=== PATIENT | female | born 1990 | race American Indian/Alaskan Native ===

== ENCOUNTER 2020-07-04 17:32 | Emergency (ER) | payer OTHER, SELFPAY ==
[2020-07-04 17:44] VITALS: BP 124/58; PULSE 76; RESP 15; TEMP 36.9; O2SAT 97; BMI 34.7
--- NOTE | 2020-07-04 18:39 | ED.EAR ---
HPI - Ear Problem <CARLEE Decker - Last Filed: 07/04/20 18:46> General Chief complaint: Ear Stated complaint: BILATERAL EAR PAIN Time Seen by Provider: 07/04/20 17:56 Source: patient Mode of arrival: Ambulatory Limitations: no limitations History of Present Illness HPI Narrative: The patient is a very pleasant 29-year-old female nonsmoker with history of otitis media, bilateral who presents with a chief complaint of continued ear pain and pressure sensation. She was treated last month for a bilateral ear infection with Augmentin. She took the whole course. A few days ago she noticed some drainage those described as brown from her left ear. She complains of bilateral ear pressure, no fevers nausea vomiting or diarrhea. She states that she has pressure in her sinuses. It radiates to her teeth. She has not taken anything recently to feel better. Related Data Allergies Allergy/AdvReac Type Severity Reaction Status Date / Time latex [LATEX] Allergy Mild IRRITATION Verified 07/04/20 17:44 Review of Systems <CARLEE Decker - Last Filed: 07/04/20 18:46> Review of Systems Narrative: GENERAL: Denies chills, fatigue, malaise, fever, sweats. HEENT: See HPI RESPIRATORY: Denies dyspnea, cough, wheezing, hemoptysis, sputum. CARDIOVASCULAR: Denies chest pain, palpitations, orthopnea, edema, GASTROINTESTINAL: Denies nausea, vomiting, abdominal pain, diarrhea, constipation, melena. : Denies dysuria, frequency, incontinence, hematuria, urinary retention. MUSCULOSKELETAL: denies weakness, joint pain, or bony pain SKIN: Denies rash, skin lesions, or other NEUROLOGIC: Denies weakness, headache, numbness, change in speech, confusion, seizures, incoordination. PSYCHIATRIC: No concerning psychosocial issues. 12 point review of systems is negative except for those stated above Patient History <CARLEE Decker - Last Filed: 07/04/20 18:46> Medical History Anxiety (Chronic) IUD (intrauterine device) in place (Chronic 06/2014) Family History Father Kidney disease Heart disease Diabetes mellitus High cholesterol History of alcohol abuse Congestive heart failure Cardiac arrhythmia Mother Age: 68 Diabetes mellitus High cholesterol Heart disease History of alcohol abuse Sister Acute asthma Grandmother Cancer Diabetes mellitus Family/Other Cancer Family/Other Cancer Grandmother Diabetes mellitus Exam <CARLEE Decker - Last Filed: 07/04/20 18:46> Narrative Exam Narrative: GENERAL: This is a well-nourished, well-developed patient, in no acute distress HEAD: Atraumatic. Normocephalic. No temporal or scalp tenderness. EYES: Pupils equal round and reactive. Extraocular motions intact. No scleral icterus. No injection or drainage. ENT: Nose without bleeding, purulent drainage or septal hematoma. Throat without erythema, tonsillar hypertrophy or exudate. Uvula midline. Airway patent. Bilateral TMs pearly cook. Pressure noted as TMs slightly bulging. Bilateral ear canals within normal limits. No pain to palpation bilateral mastoid or pinna. NECK: Trachea midline. No JVD or lymphadenopathy. Supple, nontender, no meningeal signs. CARDIOVASCULAR: Regular rate and rhythm RESPIRATORY: Clear to auscultation. Breath sounds equal bilaterally. No wheezes, rales, or rhonchi. No cough. No increased respiratory effort no accessory muscle use. EXTREMITIES: No clubbing, cyanosis, or edema. No joint tenderness, effusion, or edema noted. BACK: Nontender without deformity or crepitance. No flank tenderness. NEURO: AOx3. SKIN: No rash or erythema on visible skin Initial Vital Signs Initial Vital Signs: Vital Signs Temperature 98.4 F 07/04/20 17:44 Pulse Rate 76 07/04/20 17:44 Respiratory Rate 15 07/04/20 17:44 Blood Pressure 124/58 L 07/04/20 17:44 Pulse Oximetry 97 07/04/20 17:44 <Kevin Pereira DO - Last Filed: 07/04/20 19:11> Initial Vital Signs Initial Vital Signs: Vital Signs Temperature 98.4 F 07/04/20 17:44 Pulse Rate 76 07/04/20 17:44 Respiratory Rate 15 07/04/20 17:44 Blood Pressure 124/58 L 07/04/20 17:44 Pulse Oximetry 97 07/04/20 17:44 Scores <CARLEE Decker - Last Filed: 07/04/20 18:46> GCS Dewy Rose coma scale eye opening: Spontaneous Heidi coma scale verbal response: Orientated Heidi coma scale motor response: Obey commands Heidi coma scale total score: 15 Course <Tonya AmbrizCATA-BC - Last Filed: 07/04/20 18:46> Vital Signs Vital signs: Vital Signs - 8 hr 07/04/20 17:44 07/04/20 18:52 Temperature 98.4 F Pulse Rate 76 70 Respiratory Rate 15 Blood Pressure 124/58 L 124/86 Pulse Oximetry 97 97 <Kevin DO Randall - Last Filed: 07/04/20 19:11> Vital Signs Vital signs: Vital Signs - 8 hr 07/04/20 17:44 07/04/20 18:52 Temperature 98.4 F Pulse Rate 76 70 Respiratory Rate 15 Blood Pressure 124/58 L 124/86 Pulse Oximetry 97 97 Medical Decision Making <Tonya GoyalCARLEE terry - Last Filed: 07/04/20 18:46> MDM Narrative Medical decision making narrative: The patient is a 29-year-old female who presents with a chief complaint of bilateral ear pain and pressure. She has no indications of infection on exam, is overall benign. I did discuss at length the use of NeilMed sinus rinse or Neti pot, Flonase, Sudafed to help decrease the pressure and alleviate eustachian tube dysfunction. I did discuss with the patient the possibility of a bacterial sinus infection, though we agreed to hold off on antibiotics at this point time she does not have any fevers or signs of systemic illness. Additionally she was recently treated with antibiotics would like to avoid antibiotic associated diarrhea, candidiasis etcetera. Encourage patient to follow up with primary care provider in the next few days or come back to the emergency department for any acute concerns. Patient has no questions or concerns upon discharge and states understanding of return precautions as well as follow-up care. Discharge Plan Departure Patient Disposition: Home Clinical Impression: Acute dysfunction of both eustachian tubes Discharge Date/Time: 07/04/20 18:56 Instructions: DI for Eustachian Tube Dysfunction-Adult Activity Restrictions/Additional Instructions: Thank you for trusting us with your care today. As discussed, there is no signs of infection in either ear. I suggest the following remedies: NeilMed sinus rinse or Neti pot, Flonase once a day, Sudafed Please follow-up with primary care provider in the next few days. Please come back to the emergency department for any acute concerns. Please monitor for signs of worsening such as fever etcetera. Referrals: Maryann Brunson DO [Primary Care Provider] - <Kevin Pereira DO - Last Filed: 07/04/20 19:11> Cosign ED Attending Mariselaature Attestation: Dr Pereira Co-Sign Statement: I was available for consultation during this patient's emergency department visit. This chart is signed by myself for administrative purposes only. I did not have direct contact with this patient during this visit. They were seen independently by the APC.
[2020-07-04 18:52] VITALS: BP 124/86; PULSE 70; O2SAT 97
== END 2020-07-04 18:56 | disposition home or self-care (01) ==
PROVIDERS: Emergency Provider Nurse Practitioner Family; PCP Family Medicine
DX: H69.83 Other specified disorders of Eustachian tube, bilateral (principal); H92.03 Otalgia, bilateral
CPT/HCPCS: 99281

== ENCOUNTER 2021-01-10 14:58 | Emergency (ER) | payer OTHER, SELFPAY ==
[2021-01-10] VITALS (9 sets, daily range): BP systolic 112–154; BP diastolic 63–94; PULSE 58–91; RESP 14–23; TEMP 36.7; O2SAT 99–100
--- NOTE | 2021-01-10 15:08 | DI.CT.S_ITS ---
PROCEDURE: CT STROKE INDICATIONS: Right-sided lower facial drooping, code stroke TECHNIQUE: Noncontrast 4.5 mm thick angled axial sections acquired from the foramen magnum to the vertex, with coronal reformats. For radiation dose reduction, the following was used: automated exposure control, adjustment of mA and/or kV according to patient size. COMPARISON: None. FINDINGS: Image quality: Excellent. CSF spaces: Basal cisterns are patent. No extra-axial fluid collections. Ventricles are normal in size and shape. Brain: No midline shift. No intracranial masses or hemorrhage. Trotter-white matter interface is normal. Skull and face: Calvarium and visualized facial bones are intact, without suspicious lesions. Sinuses: Visualized sinuses and mastoids are clear. IMPRESSION: No CT evidence of acute cerebral infarct, acute intracranial hemorrhage hemorrhage, or other acute intracranial finding. Findings were discussed with at 1520 hours on 01/10/2021. This study fulfills neurological imaging criteria for inclusion or exclusion of acute stroke therapies based on available published neurological imaging guidelines. Dictated by: Louie Hathaway M.D. on 01/10/2021 at 15:28 Approved by: Louie Hathaway M.D. on 01/10/2021 at 15:29
--- NOTE | 2021-01-10 15:37 | ED_ITS ---
HPI - Neuro Symptoms/Deficit General Chief Complaint: Neuro Symptoms/Deficit Stated Complaint: right side facial numbness and dropping Time Seen by Provider: 01/10/21 15:08 Source: patient Mode of arrival: Ambulatory Limitations: no limitations History of Present Illness HPI Narrative: Patient is a 30-year-old otherwise healthy female who is here for evaluation of right-sided facial numbness and drooping and right arm tingling. A code stroke was called upon arrival. She was immediately taken to the CT scanner. Symptoms started approximately 50 minutes prior to arrival here in the ER. She states she was driving to the walk-in clinic for ?another reason ?she stated that while she was driving she got a metallic taste in her mouth and then started feeling like the right side of her face was tingling and drooping and then had some tingling in her right hand and right foot. Upon my evaluation which was shortly after her CT scan she reported that her symptoms of were improving. She denies any headache. No vision changes. She has never had a migraine before. Never had a seizure before. On Anticoagulants: No Related Data Allergies Allergy/AdvReac Type Severity Reaction Status Date / Time latex [LATEX] Allergy Mild IRRITATION Verified 01/10/21 17:51 Review of Systems Constitutional Constitutional: Denies body ache(s), Denies chills, Denies fever(s), Denies headache(s), Denies malaise and Denies weakness Eyes Eyes: Denies blurry vision, Denies exophthalmos and Denies change in vision ENT Ears, Nose, Mouth, and Throat: Denies vertigo, Denies dizziness, Denies headache(s), Denies disequilibrium, Denies sinus pain and Denies sore throat Cardiovascular Cardiovascular: Denies chest pain, Denies rapid heart rate and Denies dyspnea Respiratory Respiratory: Denies cough and Denies dyspnea Gastrointestinal Gastrointestinal: Denies abdominal pain, Denies nausea and Denies vomiting Genitourinary Genitourinary: Denies dysuria Genitourinary: Denies dysuria Musculoskeletal Musculoskeletal: Denies arthralgias, Denies myalgias and Reports tingling Integumentary/Breasts Skin/Breast: Denies rash Neurologic Neurologic: Denies confusion, Denies vertigo, Denies dizziness, Denies headache(s), Reports tingling, Denies disequilibrium and Denies weakness Psychiatric Psychiatric: Denies anxiety and Denies confusion Hematologic/Lymphatic Hematologic/Lymphatic: Denies easy bleeding and Denies easy bruising On Anticoagulants: No Allergic/Immunologic Allergic/Immunologic: Denies urticaria Patient History Medical History Anxiety IUD (intrauterine device) in place (06/2014) Family History Father Kidney disease Heart disease Diabetes mellitus High cholesterol History of alcohol abuse Congestive heart failure Cardiac arrhythmia Mother Age: 68 Diabetes mellitus High cholesterol Heart disease History of alcohol abuse Sister Acute asthma Grandmother Cancer Diabetes mellitus Family/Other Cancer Family/Other Cancer Grandmother Diabetes mellitus Exam Initial Vital Signs Initial Vital Signs: Vital Signs Temperature 98.0 F 01/10/21 15:02 Pulse Rate 91 H 01/10/21 15:02 Respiratory Rate 22 01/10/21 15:02 Blood Pressure 148/65 H 01/10/21 15:02 Pulse Oximetry 99 01/10/21 15:02 Const General: cooperative, comfortable and well developed Limitations: mental status not altered HENMT Head: normal to inspection and normocephalic Nose: external nose normal Mouth: oral mucosae normal Eyes General: appearance normal, both eyes and all related structures Eyelids: eyelids normal Pupils: PERRL Resp Effort & Inspection: normal respiratory effort Auscultation: clear to auscultation bilaterally Cardio Rate: regular rate Rhythm: regular rhythm GI Inspection: non-distended Palpation: soft and No firm Skin Lesions: no lesions Rashes: no rashes Neuro General: patient alert, patient awake and patient oriented x3 Cognition: normal cognition Speech: speech normal Gait: normal gait Motor: muscle tone normal throughout Sensory Exam: no sensory deficits noted (Decreased sensation to light touch right-sided face compared to left) Other: She reports no tingling to her hands and feet to light touch or sensation differences bilateral Extrem General: normal to inspection, capillary refill normal and No edema Psych Appearance: grossly normal and well kempt Scores GCS Heidi coma scale eye opening: Spontaneous Success coma scale verbal response: Orientated Heidi coma scale motor response: Obey commands Heidi coma scale total score: 15 NIH Stroke Scale Level of Conciousness: Alert, keenly responsive Ask month/age: Answers both questions correctly. Open/close eyes, close hand: Performs both tasks correctly Best gaze horizontal: Normal Visual karimi: No visual loss Facial palsy: Minor paralysis, flattened nasolabial fold, asymmetry on smiling Left arm drift: No drift for full 10 sec Right arm drift: No drift for full 10 sec Left leg drift: No drift for full 5 sec Right leg drift: No drift for full 5 sec Limb ataxia: Absent Sensory on face/arms/legs: Mild to moderate sensory loss, can tell touch Best language: No aphasia, normal Dysarthria: Normal Extinction or inattention: No abnormality Total NIH Stroke scale score: 2 Course Orders Ordered: ED Orders 01/10/21 15:08 CT Stroke Stat 01/10/21 15:09 EKG-12 Lead Stat 01/10/21 15:33 Complete Blood Count AUTO DIFF Stat Comprehensive Metabolic Panel Stat Ethanol (ETOH) Stat Lipase Stat Test Serum,Qual Stat Thyroid Stimulating Hormone Stat Troponin & CK Cardiac Panel Stat 01/10/21 16:17 Chlamydia Gonorrhea PCR -URINE Stat Urinalysis and Microscopic Stat Discontinued Medications Azithromycin (Azithromycin 250 Mg Tablet) 1,000 mg PO NOW ONE Stop: 01/10/21 18:27 Last Admin: 01/10/21 18:33 Dose: 1,000 mg Documented by: MINEOTEM Vital Signs Vital signs: Vital Signs - 8 hr 01/10/21 15:02 01/10/21 15:11 01/10/21 15:12 Temperature 98.0 F Pulse Rate 91 H 81 72 Respiratory Rate 22 Blood Pressure 148/65 H 129/79 Pulse Oximetry 99 99 100 01/10/21 15:30 01/10/21 16:00 01/10/21 16:15 Temperature Pulse Rate 67 60 68 Respiratory Rate 23 21 23 Blood Pressure 120/82 112/63 115/68 Pulse Oximetry 100 100 100 01/10/21 16:30 01/10/21 17:00 01/10/21 18:49 Temperature Pulse Rate 59 L 58 L 81 Respiratory Rate 18 18 14 Blood Pressure 119/73 114/78 154/94 H Pulse Oximetry 100 100 100 MDM - Neuro Symptoms/Deficit Lab Data Attestation: I reviewed the patient's lab results. Result diagrams: 01/10/21 15:33 01/10/21 15:33 Labs: Lab Results 01/10/21 01/10/21 01/10/21 Range/Units 15:33 15:33 15:33 WBC 7.2 (4.5-11.0) X10^3/uL RBC 4.26 (4.0-5.2) X10^6/uL Hgb 12.1 (12.0-16.0) g/dL Hct 37.4 (36-46) % MCV 87.9 (80-100) fL MCH 28.5 (26-34) PG MCHC 32.4 (30-36) % RDW 14.6 (11.6-14.8) % Plt Count 260 (150-400) X10^3/uL Neut % (Auto) 56.0 (50-75) % Lymph % (Auto) 36.1 (25-40) % Davidson % (Auto) 4.9 (3-14) % Eos % (Auto) 2.7 (2-4) % Baso % (Auto) 0.3 (0-2) % Neut # (Auto) 4000 (1931-0649) /uL Lymph # (Auto) 2600 (2307-5506) /uL Davidson # (Auto) 400 (0-900) /uL Eos # (Auto) 200 (0-450) /uL Baso # (Auto) 0 (0-100) /uL Sodium 137 (137-145) mmol/L Potassium 3.8 (3.4-5.1) mmol/L Chloride 103 (98-107) mmol/L Carbon Dioxide 26 (22-32) mmol/L BUN 16 (7-17) mg/dL Creatinine 0.73 (0.52-1.04) mg/dL Estimated GFR > 60.0 (>60) mL/min BUN/Creatinine Ratio 21.9 (6-22) Glucose 103 H (70-100) mg/dL Calcium 9.0 (8.4-10.2) mg/dL Total Bilirubin 0.2 (0.2-1.3) mg/dL AST 19 (14-36) IU/L ALT 15 (<35) IU/L Alkaline Phosphatase 46 (38-126) U/L Total Creatine Kinase 56 (30-135) U/L CK-MB (CK-2) TNP CK-MB (CK-2) Rel Index TNP Troponin I < 0.012 (0.01-0.034) ng/mL Total Protein 7.8 (6.3-8.2) g/dL Albumin 4.5 (3.5-5.0) g/dL Globulin 3.3 (1.7-4.1) g/dL Albumin/Globulin Ratio 1.4 (1.0-2.8) Lipase 78 (23-300) U/L TSH 1.46 (0.47-4.68) uIU/mL Serum , Qual (Negative) Urine Color Urine Appearance Urine pH (4.5-8.0) Ur Specific [place] (1.000-1.035) Urine Protein (Negative) Urine Glucose (UA) (Negative) g/dL Urine Ketones (NEGATIVE) Urine Occult Blood (Negative) Urine Nitrate (Negative) Urine Bilirubin (NEGATIVE) Urine Urobilinogen (0.2) E.U./dL Ur Leukocyte Esterase (NEGATIVE) Urine RBC (0-5/HPF) Urine WBC (0-5/HPF) Urine Bacteria (None) Ur Culture Indicated? Ethyl Alcohol < 10 ( - 10) mg/dL Ur Chlamydia DNA (PCR) N gonorrhoeae DNA (PCR) 01/10/21 01/10/21 01/10/21 Range/Units 15:33 16:17 16:17 WBC (4.5-11.0) X10^3/uL RBC (4.0-5.2) X10^6/uL Hgb (12.0-16.0) g/dL Hct (36-46) % MCV (80-100) fL MCH (26-34) PG MCHC (30-36) % RDW (11.6-14.8) % Plt Count (150-400) X10^3/uL Neut % (Auto) (50-75) % Lymph % (Auto) (25-40) % Davidson % (Auto) (3-14) % Eos % (Auto) (2-4) % Baso % (Auto) (0-2) % Neut # (Auto) (2278-1836) /uL Lymph # (Auto) (6648-6873) /uL Davidson # (Auto) (0-900) /uL Eos # (Auto) (0-450) /uL Baso # (Auto) (0-100) /uL Sodium (137-145) mmol/L Potassium (3.4-5.1) mmol/L Chloride (98-107) mmol/L Carbon Dioxide (22-32) mmol/L BUN (7-17) mg/dL Creatinine (0.52-1.04) mg/dL Estimated GFR (>60) mL/min BUN/Creatinine Ratio (6-22) Glucose (70-100) mg/dL Calcium (8.4-10.2) mg/dL Total Bilirubin (0.2-1.3) mg/dL AST (14-36) IU/L ALT (<35) IU/L Alkaline Phosphatase (38-126) U/L Total Creatine Kinase (30-135) U/L CK-MB (CK-2) CK-MB (CK-2) Rel Index Troponin I (0.01-0.034) ng/mL Total Protein (6.3-8.2) g/dL Albumin (3.5-5.0) g/dL Globulin (1.7-4.1) g/dL Albumin/Globulin Ratio (1.0-2.8) Lipase (23-300) U/L TSH (0.47-4.68) uIU/mL Serum , Qual Negative (Negative) Urine Color Yellow Urine Appearance Clear Urine pH 6.0 (4.5-8.0) Ur Specific [place] 1.020 (1.000-1.035) Urine Protein Negative (Negative) Urine Glucose (UA) Negative (Negative) g/dL Urine Ketones Negative (NEGATIVE) Urine Occult Blood Negative (Negative) Urine Nitrate Negative (Negative) Urine Bilirubin Negative (NEGATIVE) Urine Urobilinogen 0.2 (0.2) E.U./dL Ur Leukocyte Esterase Negative (NEGATIVE) Urine RBC 0-1/hpf (0-5/HPF) Urine WBC 0-1/hpf (0-5/HPF) Urine Bacteria None seen (None) Ur Culture Indicated? Cult not indicated Ethyl Alcohol ( - 10) mg/dL Ur Chlamydia DNA (PCR) Detected H N gonorrhoeae DNA (PCR) Not detected Point of Care Testing Glucose POC [address] scan - head: Radiologist's Impression: [address] [id number] Scan ReportSigned Patient: Yessica Espinal NMR#: [id number]: 1990Acct:[id number]/Sex: 30 / FDate of Service: 01/10/21Loc: EDAccession Number: [id number] Procedure: CT Stroke Ordering Provider: Kevin Pereira D.O. PROCEDURE: CT STROKE INDICATIONS: Right-sided lower facial drooping, code stroke TECHNIQUE: Noncontrast 4.5 mm thick angled axial sections acquired from the foramen magnum to the vertex, with coronal reformats. For radiation dose reduction, the following was used: automated exposure control, adjustment of mA and/or kV according to patient size. COMPARISON: None. FINDINGS: Image quality: Excellent. CSF spaces: Basal cisterns are patent. No extra-axial fluid collections. Ventricles are normal in size and shape. Brain: No midline shift. No intracranial masses or hemorrhage. Trotter-white matter interface is normal. Skull and face: Calvarium and visualized facial bones are intact, without suspicious lesions. Sinuses: Visualized sinuses and mastoids are clear. IMPRESSION: No CT evidence of acute cerebral infarct, acute intracranial hemorrhage hemorrhage, or other acute intracranial finding. Findings were discussed with at 1520 hours on 01/10/2021. This study fulfills neurological imaging criteria for inclusion or exclusion of acute stroke therapies based on available published neurological imaging guidelines. Dictated by: Louie Hathaway M.D. on 01/10/2021 at 15:28 Approved by: Louie Hathaway M.D. on 01/10/2021 at 15:29 ECG Data Attestation: I personally reviewed and interpreted this ECG as follows: Prior ECG tracings: not available for review Interpretation: Sinus bradycardia Ventricular rate of 57 Normal axis Normal QRS Normal QTC No ST T wave changes MDM Narrative Medical decision making narrative: Her head CT is unremarkable in her labs were unremarkable. She does have drooping to the right side of her face however I do have a strong suspicion that this is effort related. There are times when I watch her talk that she is moving the right side of her face in the right side of her mouth without any difficulty. She does report decreased sensation to light touch to the right side of her face. She does not have any sensory differences with upper extremities or lower extremities bilateral. Upon further discussion patient was on her way to the walk-in clinic to be evaluated for potential STD. She states she was called by a prior sexual partner who just tested positive for chlamydia. Patient is not having any symptoms. She has had chlamydia in the past. Her urinalysis today is positive for chlamydia. She was given azithromycin here in the emergency department and was given instructions with regard to follow on care. I do have low suspicion that she is having CVA/TIA. I suspect this is anxiety. When I went back in and talked with the patient she did report resolution of her symptoms. She was given return precautions and follow-up instructions. She expressed understanding and agreement. Discharge Plan Departure Patient Disposition: Home Clinical Impression: Chlamydia, Facial paresthesia Instructions: Chlamydia Activity Restrictions/Additional Instructions: The antibiotic here given here in the emergency department is what is use to treat the chlamydia infection. We recommend no sexual intercourse for the next 7-14 days. Contact your primary provider for follow-up. Your workup for the tingling on your right side is very reassuring. This is not consistent with a stroke or Mcpherson's palsy. Recommend you contact your primary doctor for further evaluation of this and return to the emergency department for any new or worsening symptoms. Referrals: Maryann Brusnon DO [Primary Care Provider] -
[2021-01-10 15:41] LABS: Add Manual Diff / Slide Review NO; Basophils Absolute Auto 0 /uL (0-100); Basophils Percent Auto 0.3 % (0-2); Eosinophils Absolute Auto 200 /uL (0-450); Eosinophils Percent Auto 2.7 % (2-4); Hematocrit 37.4 % (36-46); Hemoglobin 12.1 g/dL (12.0-16.0); Lymphocytes Absolute Auto 2600 /uL (1100-4500); Lymphocytes Percent Auto 36.1 % (25-40); Mean Corpuscular HGB Conc 32.4 % (30-36); Mean Corpuscular Hemoglobin 28.5 PG (26-34); Mean Corpuscular Volume 87.9 fL (80-100); Monocytes Absolute Auto 400 /uL (0-900); Monocytes Percent Auto 4.9 % (3-14); Neutrophils Absolute Auto 4000 /uL (1500-7000); Platelet Count 260 X10^3/uL (150-400); Red Blood Cell Count 4.26 X10^6/uL (4.0-5.2); Red Cell Distribution Width 14.6 % (11.6-14.8); White Blood Cell Count 7.2 X10^3/uL (4.5-11.0)
[2021-01-10 15:54] LABS: Alanine Aminotransferase 15 IU/L (<35); Albumin 4.5 g/dL (3.5-5.0); Albumin Globulin Ratio 1.4 (1.0-2.8); Alkaline Phosphatase 46 U/L (38-126); Aspartate Aminotransferase 19 IU/L (14-36); BUN Creatinine Ratio 21.9 (6-22); Bilirubin Total 0.2 mg/dL (0.2-1.3); Blood Urea Nitrogen 16 mg/dL (7-17); Carbon Dioxide 26 mmol/L (22-32); Chloride 103 mmol/L (98-107); Creatine Kinase 56 U/L (30-135); Estimated Glomerular Filt Rate > 60.0 mL/min (>60); Ethanol (ETOH) < 10 mg/dL; Globulin 3.3 g/dL (1.7-4.1); Glucose 103 mg/dL (70-100); HEMOLYSIS < 15 (0-50); Lipase 78 U/L (23-300); Potassium 3.8 mmol/L (3.4-5.1); Sodium 137 mmol/L (137-145); Total Protein 7.8 g/dL (6.3-8.2)
[2021-01-10 16:05] LABS: Troponin I < 0.012 ng/mL (0.01-0.034)
[2021-01-10 16:11] LABS: Pregnancy Test Serum,Qual Negative (Negative)
[2021-01-10 16:22] LABS: Bacteria Urine None Seen
[2021-01-10 16:37] LABS: Thyroid Stimulating Hormone 1.46 uIU/mL (0.47-4.68)
--- NOTE | 2021-01-10 16:42 | PC.NURSE ---
pt reports that her right side of her face went numb with a metallic taste while she was driving. states that the right side of her body is tingling and feels like it is asleep. upon arrival to Er. reports now that it is resolved.
[2021-01-10 16:43] LABS: Appearance Urine UA CLEAR; Bilirubin Urine UA NEGATIVE (NEGATIVE); Color Urine UA YELLOW; Glucose Urine UA NEGATIVE (Negative); Ketones Urine UA NEGATIVE (NEGATIVE); Leukocyte Esterase Urine UA NEGATIVE (NEGATIVE); Nitrite Urine UA NEGATIVE (Negative); Occult Blood Urine UA NEGATIVE (Negative); Protein Urine UA NEGATIVE (Negative); Urobilinogen Urine UA 0.2 E.U./dL (0.2)
[2021-01-10 17:03] LABS: Culture Indicated Urine Cult Not Indicated; RBC Urine 0-1/HPF (0-5/HPF); WBC Urine 0-1/HPF (0-5/HPF)
[2021-01-10 17:50] LABS: Urine N gonorrhoeae NOT DETECTED
[2021-01-10] MEDS: AZITHROMYCIN 250 MG TABLET 1000 MG PO (18:33)
[2021-01-13 10:38] LABS: Urine Chlamydia DETECTED
== END 2021-01-10 18:50 | disposition home or self-care (01) ==
PROVIDERS: Emergency Provider Emergency Medicine; PCP Family Medicine
DX: R20.2 Paresthesia of skin (principal); R29.810 Facial weakness; A74.9 Chlamydial infection, unspecified; R00.1 Bradycardia, unspecified
CPT/HCPCS: 36415; 70450; 80053; 80320; 81001; 82550; 82962; 83690; 84443; 84484; 84703; 85025; 87491; 87591; 93005; 99284; 99285